=== PATIENT | male | born 1960 | race Caucasian/White ===

== ENCOUNTER 2019-03-25 12:18 | Emergency (ER) | payer OTHER ==
[~2019-03-25] VITALS: Ht 198.1 cm; Wt 102.1 kg
[2019-03-25 12:38] VITALS: BP 122/90
[2019-03-25] MEDS ORDERED: methylPREDNISolone SOD SUCC 125 MG/2 ML VL IM ONE (14:00)
[2019-03-25] MEDS ORDERED: KETOROLAC TROMETH 60MG/2ML VIAL IM ONE (14:00)
== END 2019-03-25 14:42 | disposition home or self-care (01) ==
LOC: ER 12:18
DX: G89.29 Other chronic pain (principal); M54.5 Low back pain; X50.0XXA Overexertion from strenuous movement or load, initial encounter; Y93.89 Activity, other specified; Y99.8 Other external cause status; Y92.89 Other specified places as the place of occurrence of the external cause
CPT/HCPCS: 96372; 99283; J1885; J2930